=== PATIENT | female | born 1970 | race Caucasian/White ===

== ENCOUNTER 2024-12-30 12:45 | Outpatient (CLI) | payer OTHER, SELFPAY ==
--- NOTE | 2024-12-30 13:15 | ECG_ITS ---
Test Date: 2024-12-30 13:37:42 Measurements Intervals Enterprise Rate: 83 P: 37 SC: 156 QRS: -27 QRSD: 108 T: 12 QT: 384 QTc: 452 Interpretive Statements SINUS RHYTHM INCOMPLETE RIGHT BUNDLE BRANCH BLOCK CONSIDER ANTEROLATERAL INFARCT, AGE INDETERMINATE BASELINE WANDER- I, II, AVR, V2 ABNORMAL ECG No previous ECG available for comparison Electronically Signed On 12-30-2024 13:41:24 CDT by Sandeep Torres D.O.
[2024-12-30 13:40] LABS: Hematocrit 32.3 % (37.0-47.0); Hemoglobin 10.2 g/dL (12.0-15.0); Mean Corpuscular HGB Conc 31.6 g/dl (32-36); Mean Corpuscular Hemoglobin 29.1 pg (26-34); Mean Corpuscular Volume 92.3 fl (80-100); Mean Platelet Volume 9.4 fl (7.4-10.4); Platelet Count Result 151 k/mm3 (150-375); Red Cell Distribution Width 21.6 % (11.5-14.5); White Blood Count 9.2 K/mm3 (4.5-10.0)
[2024-12-30 13:50] LABS: Albumin Level 4.1 g/dL (3.5-5.1); Anion Gap 13 mmol/L (4-12); Blood Urea Nitrogen 6 mg/dL (7-17); Calcium 8.8 mg/dL (8.4-10.2); Carbon Dioxide 24 mmol/L (22-30); Chloride 106 mmol/L (98-107); Estimated Glomerular Filt Rate > 60; Glucose 131 mg/dL (65-110); Potassium 4.3 mmol/L (3.4-5.0); Sodium 143 mmol/L (137-145)
[2024-12-30 13:52] LABS: Iron 300 ug/dL (37-170)
[2024-12-30 13:57] LABS: Prealbumin 11.4 mg/dL (17.6-36.0)
--- OUTSIDE RECORDS SUMMARY | 2024-12-30 14:18 | XMS_ITS | Encounter Summary ---
Author Organization [facility] Address [address] [facility] [place] [address] Phone Care Team Providers Care Casino Manager Name Role Phone Faisal Lopez MD Primary Care Provider [phone] Norma Benito APRN, CNP Unavailable Andres Almeida MD Unavailable [phone] Amor Tirado MD Unavailable [phone] Encounter Details Date Type Department Care Team (Late st Contact Info) Description 12/09/2024 Results Follow-Up [facility] On[facility] Services [address] [place] [phone] Kathie Corey Maria Elena, PAC [address] [place] [address] FOLIC ACID (FOLATE), FERRITIN, VITAMIN B12, Additional followed-up results: 5 Social History Tobacco Use Types Packs/Day Years Used Date Smoking Tobacco: Every Day Cigarettes 0.3 20 Smokeless Tobacco: Never Comments:3 packs a week Alcohol Use Standard Drinks/Week Comments Not Currently 12 (1 standard drink = 0.6 oz pu re alcohol) [facility] Utilities Answer Date Recorded In the past 12 months has [employer] gas, oil, or water company threatened to shut off services in your home? No 11/09/2024 Social Connection and Isolat ion Panel [NHANES] Answer Date Recorded In a typical week, how many times do you talk on the phone with family, friends, or neighbors? More than three times a week 11/09/2024 How often do you get togethe r with friends or relatives? Once a week 11/09/2024 How often do you attend chur or temple services? 1 to 4 times per year 11/09/2024 Do you belong to any clubs o r organizations such as pentecostalism groups, unions, fraternal or athletic groups, or school groups? No 11/09/2024 How often do you attend meet ings of the clubs or organizations you belong to? Patient declined 11/09/2024 Are you , , di vorced, , never , or living with a partner? 11/09/2024 AUDIT-C Answer Date Recorded Q1: How often do you have a drink containing alc ohol? Monthly or less 11/09/2024 Q2: How many drinks containi ng alcohol do you have on a typical day when you are drinking? 1 or 2 11/09/2024 Q3: How often do you have si x or more drinks on one occasion? Never 11/09/2024 Overall Financial Resource Strain (CARDIA) Answe r Date Recorded How hard is it for you to pa y for the very basics like food, housing, medical care, and heating? Not hard at all 11/09/2024 PHQ-2 Answer Date Recorded Total Score - Questions 1-9 0 11/07 [facility] - Occupational Stress Questionnaire Answer Date Recorded Do you feel stress - tense, restless, nervous, or anxious, or unable to sleep at night because your mind is troubled all the time - these days? To some extent 11/09/2024 Exercise Vital Sign Answer Date Recorde d On average, how many days pe r week do you engage in moderate to strenuous exercise (like a brisk walk)? 0 days 11/09/2024 On average, how many minutes do you engage in exercise at this level? 0 min 11/09/2024 Hunger Vital Sign Answer Date Recorded Within the past 12 months, y ou worried that your food would run out before you got the money to buy more. Never true 11/10/19 25 Within the past 12 months, t he food you bought just didn't last and you didn't have money to get more. Never true 11/09/2024 PRAPARE - Transportation Answer Date Re corded In the past 12 months, has l ack of transportation kept you from medical appointments or from getting medications? No 11/2024 In the past 12 months, has l ack of transportation kept you from meetings, work, or from getting things needed for daily living? No 11/09/2024 Housing Stability Vital Sign Answer Fantasma e Recorded In the last 12 months, was t here a time when you were not able to pay the mortgage or rent on time? No 11/09/2024 In the past 12 months, how m any times have you moved where you were living? 0 11/09/2024 At any time in the past 12 m [facility], were you homeless or living in a custodial (including now)? No 11/09/2024 Education Answer Date Recorded What is the highest level of school you have completed or the highest degree you have received? Master's degree (e.g., MA, MS, Tash, MEd, [employer], NITHYA) 02/06/2022 Comments No Sex and Gender Information Value Date Recorded Sex Assigned at Not on file Legal Sex Female 9:22 PM CDT Gender Identity Not on file Sexual Orientation Not on file documented as of this encounter Plan of Treatment Upcoming Encounters Date Type Department Care Team (Late st Contact Info) Description 01/05/2025 3:30 PM CDT Office Visit [facility] [address] [place] [address] Amor Tirado MD [address] [place] [address] 01/18/2025 9:00 AM CDT Appointment [facility] Ultrasound [address] [place] [address] Kathie Corey Maria Elena, PAC [address] [place] [address] Discharge Disposition: Discharged to home or Selfcare 02/15/2025 11:30 AM CD[facility] [address] [place] [phone] Discharge Disposition: Discharged to home or Selfcare 02/22/2025 10:40 AM CDT [facility] [address] [place] [address] CoreyKathie aviles, [facility] [address] [place] [address] Discharge Disposition: Discharged to home or Selfcare documented as of this encounter Visit Diagnoses Not on filedocumented in this encounter Additional Health Concerns Assessment Noted Time PHQ-9 Depression Total Score: 0 11/19/19 3:48 PM CDT documented as of this encounter Care Teams Casino Manager Relationship Specialty Start Date End Date Faisal Lopez MD [address] [address] PCP - General Family Medicine 07/29/15 Norma Benito APRN, DETAILER [address] [place] [address] Nurse Practitioner Advanced Practice Nurse 10/15/23 Andres Almeida MD [address] [phone] Consulting Physician General Surgery 11/21/23 Amor Tirado MD [address] [place] [phone] Consulting Physician Neurology 03/31/24 documented as of this encounter
--- OUTSIDE RECORDS SUMMARY | 2024-12-30 14:18 | XMS_ITS | Encounter Summary ---
Author Organization [facility] Address [address] [place] [address] Care Team Providers Care Cargo Worker Name Role Phone Faisal Lopez MD Primary Care Provider [phone] Ilan Ortega MD Unavailable Kenia Suárez RN Unavailable [phone] Encounter Details Date Type Department Care Team (Late st Contact Info) Description 03/22/2021 Telephone [facility] [address] [facility] [address] [place] [phone] Allison Hagan MD PhD [address] [facility] [address] [place] [address] Social History Tobacco Use Types Packs/Day Years Used Date Smoking Tobacco: Every Day Cigarettes 0.5 30 Smokeless Tobacco: Never Alcohol Use Standard Drinks/Week Comments Yes 0 (1 standard drink = 0.6 oz pur e alcohol) Comments Unknown Sex and Gender Information Value Date Recorded Sex Assigned at Not on file Legal Sex Female 12:53 AM SHOVEL OPERATOR Gender Identity Not on file Sexual Orientation Not on file documented as of this encounter Plan of Treatment Upcoming Encounters Date Type Department Care Team (Latest Contact Info) Description 05/26/2025 11:30 AM CDT Hospital Encounter [facility] Center [address] [place] [address] Ilan Ortega MD [address] [place] [address] [place] [address] 05/26/2025 11:30 AM CDT - 05/26/2025 12:05 PM CDT Surgery [facility] [address] [place] [address] Ilan Ortega MD [address] [place] [address] [address] [place] [address] ESOPHAGOGASTRODUODENOSCOPY Scheduled Procedures Name Priority Associated Diagnoses Date/Ti me ESOPHAGOGASTRODUODENOSCOPY Gastric ulcer, unspecified chronicity, unspecified whether gastric ulcer hemorrhage or perforation present 05/26/2025 11:30 AM CDT documented as of this encounter Goals Goal Patient Goal Type Associated Problems Recent Progress Patient-Stated? Author CCM Chronic Pain Care Plan Chronic Care Management Worsening( 10:47 AM SHOVEL OPERATOR) Shantel Olmedo RN Note: Problem: Chronic Pain Goals: 1. Minimize further functional decline 2. Maximize quality of life 3. Control pain Strategies: - Activity/exercise program recommendation - Conservative stepwise pain medicine strategy with multi-disciplinary approach - Recommend healthy lifestyle strategies and compensatory methods as needed documented as of this encounter Visit Diagnoses Not on filedocumented in this encounter Care Teams Cargo Worker Relationship Specialty Start Date End Date Faisal Lopez MD [address] [address] PCP - General 10/13/18 Ilan Ortega MD 4 [facility] [address] [place] [address] Consulting Physician Gastroenterology 04/30/24 Kenia Suárez, RN [address] [facility] [address] [place] [address] [facility] Outpatient Cell Repairer 07/07/24 07/23/24 documented as of this encounter
--- OUTSIDE RECORDS SUMMARY | 2024-12-30 14:18 | XMS_ITS | Referral Summary ---
Author Organization [facility] Address [address] [place] [address] Care Team Providers Care Bench Precision Assembler Name Role Phone Faisal Lopez MD Primary Care Provider [phone] Ilan Ortega MD Unavailable Encounters Date Type Department Care Team Description 12/19/19 25 Orders Only [facility] Surgery [address] [place] [address] [address] [place] [phone] Caitlyn Glasgow RMA Mass of soft tissue of face (Primary Dx) 12/17/19 25 Telephone [facility] Gastroenterology at [address] [place] [phone] Brianna Feliciano 12/16/19 25 10:30 AM CDT Office Visit [facility] Surgery [address] [place] [address] [address] [place] [phone] Marion Sung NP Mass of soft tissue of face (Primary Dx); Skin lesion 12/01/19 25 Telephone [facility] Gastroenterology at [address] [place] [phone] Brianna Feliciano 11/28/19 25 Telephone [facility] Gastroenterology at [address] [place] [phone] Hallie Conway LPN 11/28/19 Telephone [facility] Gastroenterology at [address] [place] [address] Hallie Conway LPN 11/27/19 Results Follow-Up [facility] Gastroenterology at [address] [place] [address] Ilan Ortega MD 11/19/19 Orders Only [facility] Gastroenterology at [address] [place] [address] Ilan Ortega MD 11/19/19 10:40 AM CDT Anesthesia Event [address] [address] Guero Ureña MD Kory, Christopher James, MD 11/19/19 11:00 AM CDT - 11/19/19 11:40 AM CDT Surgery [address] [address] Ilan Ortega MD ESOPHAGOGASTRODUODENOSCOPY BIOPSY 11/19/19 9:56 AM CDT - 11/19/19 12:01 PM CDT Hospital Encounter [address] [address] Ilan Ortega MD Acute gastric ulcer without hemorrhage or perforation Discharge Disposition: Discharge to home or self care from Last 3 Months Allergies Active Allergy Reactions Criticality Noted Date Comments Simvastatin Swelling Medium 04/04/2018 Ankle swelling Sulfa (Sulfonamide Antibiotics) Angioedema High Sulfanilamide Angioedema High Reaction: Angioedema, Tomato Anaphylaxis High 06/26/2024 Medications omeprazole (PriLOSEC) 40 mg capsule Take 1 capsule (40 mg total) by mouth 2 (two) times a day before breakfast and dinner Please open capsule and sprinkle on food for consumption 180 capsule 1 11/19/19 Active sucralfate (CARAFATE) 1 gram tablet Take 1 tablet (1 g total) by mouth 4 (four) times a day 120 tablet 11/19/19 Active Additional Information Patient not taking.Reported on 12/15/2024 traZODone (DESYREL) 50 mg tablet Take by mouth nightly Active potassium chloride ER 20 mEq CR tablet Take 1 tablet (20 mEq total) by mouth daily 08/13/20 24 Active furosemide (LASIX) 40 mg tablet Take 1 tablet (40 mg total) by mouth daily 12/10/19 25 Active folic acid (FOLVITE) 1 mg tablet Take 1 tablet (1 mg total) by mouth daily 30 tablet 04/30/20 24 025 Discontinued calcium carbonate-arlette min D3 1,250mg (500mg elemental) - 5 mcg (200 units) per tablet Take 1 tablet by mouth 3 (three) times a day 90 tablet 07/06/20 24 025 Discontinued cyanocobalamin (Vitamin B-12) 500 mcg tablet Take 1 tablet (500 mcg total) by mouth daily 30 tablet 1 07/06/20 24 025 Discontinued thiamine (VITAMIN B1) 100 mg tablet Take 1 tablet (100 mg total) by mouth daily 30 tablet 1 07/06/20 24 025 Discontinued multivitamin with folic acid 400 mcg tablet Take 2 tablets by mouth daily 60 tablet 07/07/20 24 025 Discontinued zinc sulfate (ZINCATE) 50 mg zinc (220 mg) capsule Take 1 capsule (220 mg total) by mouth daily 30 capsule 07/07/20 24 025 Discontinued furosemide (LASIX) 80 mg tablet Take 1 tablet (80 mg total) by mouth daily 30 tablet 07/06/20 24 025 Discontinued spironolactone (ALDACTONE) 50 mg tablet Take 4 tablets (200 mg total) by mouth daily 120 tablet 07/06/20 025 Discontinued Active Problems Problem Noted Date Diagnosed Date Hepatic steatosis 07/24/2024 Hypervolemia, unspecified hypervolemia type 06/09 Melena 06/26/2024 Moderate protein-calorie malnutrition 04/29/2024 GI bleed 04/28/2024 Gastrointestinal hemorrhage, unspecified gastrointestinal hemorrhage type 04/28/2024 Hematochezia 04/28/2024 Anemia, blood loss 04/28/2024 Diarrhea 12/30/2023 Gastric ulcer 12/30/2023 Gastroesophageal reflux disease 12/30/2023 S/P laparoscopic cholecystectomy 12/19/2023 EYAD (obstructive sleep apnea) 10/29/2023 Anastomotic ulcer 10/25/2023 Abnormal finding on MRI of brain 08/28/2022 Laryngeal spasm 06/05/2022 Assessment & Plan (06/05/2022 2:51 PM CDT): Pepcid 40 mg at bedtime 64 ounces of caffeine free and soda free fluid daily LPR discussed and Handout provided Dysfunction of right eustachian tube 04/11/2022 Assessment & Plan (04/12/2022 2:41 PM CDT): Right myringotomy with T-tube placement in the Office today Follow up after Audiogram [facility] Ciprofloxacin 5 drops into the Right ear twice daily for 5 days How to Use Ear Drops Assessment & Plan (04/11/2022 10:58 AM CDT): Right myringotomy with T-tube placement in the Office Risks and complications discussed including anesthesia, bleeding, infection, hearing loss, ear tubes may fall out early, fall inwards, stay in longer than a few years, get clogged, fall out and leave a hole in the ear drum that would need to be patched, drain clear fluid. Hearing test a few weeks after ear tube placement Scan ears if no improvement in hearing testing Tinnitus of both ears 01/31/2022 Assessment & Plan (01/31/2022 2:54 PM CDT): Hearing test - [facility] Try to cancel out noise with loud fan or radio Follow up with PCP regarding elevated blood pressure A Few Causes of Ringing in Your Ears (Tinnitus) Cervical radiculopathy 02/24/2021 Chronic right shoulder pain 02/24/2021 B12 deficiency 10/17/2018 Numbness and tingling in right hand 08/14/2018 Neck pain on right side 06/04/2018 Allergic contact dermatitis due to plants, excep t food 04/04/2018 Mild intermittent asthma without complication Hyperglycemia 07/03/2016 Breast cancer screening 01/04/2016 Hyperlipidemia 09/12/2015 Hypertension 08/11/2015 Dysfunctional uterine bleeding 01/23/2010 Overview (12/15/2024): Note: Unchanged Resolved Problems Problem Noted Date Diagnosed Date Resolved Date Gallstones 12/06/2023 12/19/2023 Assessment & Plan (12/17/2023 9:35 AM CDT): ARIAN drain will be removed at bedside. Continue to change gauze as needed for drainage the next few days. Then can just replaced with Neosporin and a Band-Aid. Avoid submerging incisions for another week. Avoid heavy lifting for another 2-3 weeks. Diet as tolerates. Patient can return to work with light duty. She will call us back with any further questions or concerns. Symptomatic cholelithiasis 12/03/2023 0 12/19/2023 Social History Tobacco Use Types Packs/Day Years Used Date Smoking Tobacco: Every Day Cigarettes 0.5 30 Smokeless Tobacco: Never Tobacco Cessation:Ready to Q uit: Not Asked; Counseling Given: Not Answered Alcohol Use Standard Drinks/Week Comments Yes 0 (1 standard drink = 0.6 oz pur e alcohol) socially only PT [employer] Utilities Answer Date Recorded In the past 12 months has [employer], gas, oil, or water [employer] threatened to shut off services in your home? No 07/07/2024 Social Connection and Isolat ion Panel [NHANES] Answer Date Recorded In a typical week, how many times do you talk on the phone with family, friends, or neighbors? More than three times a week 07/07/2024 How often do you get togethe r with friends or relatives? More than three times a week 07/07/2024 How often do you attend [facility] or rastafari services? Never 07/07/2024 Do you belong to any clubs o r organizations such as anglican groups, unions, fraternal or athletic groups, or school groups? No 07/07/2024 How often do you attend meet ings of the clubs or organizations you belong to? Never 07/07/2024 Are you , , di vorced, , never , or living with a partner? 07/07/2024 AUDIT-C Answer Date Recorded Q1: How often do you have a drink containing alc ohol? Never 07/14/2024 Q2: How many drinks containi ng alcohol do you have on a typical day when you are drinking? 1 or 2 07/14/2024 Q3: How often do you have six or more drinks on one occasion? Never 07/14/2024 Overall Financial Resource Strain (CARDIA) Answe r Date Recorded How hard is it for you to pa y for the very basics like food, housing, medical care, and heating? Not hard at all 07/07/2024 Hunger Vital Sign Answer Date Recorded Within the past 12 months, y ou worried that your food would run out before you got the money to buy more. Never true 07/07/20 24 Within the past 12 months, t he food you bought just didn't last and you didn't have money to get more. Never true 07/07/2024 PRAPARE - Transportation Answer Date Re corded In the past 12 months, has l ack of transportation kept you from medical appointments or from getting medications? No 06/10 In the past 12 months, has l ack of transportation kept you from meetings, work, or from getting things needed for daily living? No 07/07/2024 Housing Stability Vital Sign Answer Fantasma e Recorded In the last 12 months, was t here a time when you were not able to pay the mortgage or rent on time? No 07/07/2024 In the past 12 months, how m any times have you moved where you were living? 0 07/07/2024 At any time in the past 12 m [facility], were you homeless or living in a prison (including now)? No 07/07/2024 Personal Safety Answer Date Recorded Have you ever been in or are you currently in a harmful physical or emotional relationship or is someone making you feel afraid or unsafe? 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 Gender Identity Not on file Sexual Orientation Not on file Last Filed Vital Signs Vital Sign Reading Time Taken Comments Blood Pressure 150/84 11/18/2024 11:43 AM CDT Pulse 73 11/18/2024 11:43 AM CDT Temperature 36.9 C (98.5 F) 11/18/2024 11:43 AM CDT Respiratory Rate 14 11/18/2024 11:43 AM CDT Oxygen Saturation 98% 11/18/2024 11:43 AM CDT Inhaled Oxygen Concentration - - Weight 99.8 kg (220 lb) 11/18/2024 10:04 AM CDT Height 172.7 cm (5' 8 ) 11/18/2024 10:04 AM CDT Body Mass Index 33.45 11/18/2024 10:04 AM CDT Plan of Treatment Upcoming Encounters Date Type Department Care Team (Latest Contact Info) Description 05/26/2025 11:30 AM CDT Hospital Encounter [address] [address] Ilan Ortega MD [address] [place] [address] 05/26/2025 11:30 AM CDT - 05/26/2025 12:05 PM CDT Surgery [address] [address] Ilan Ortega MD [address] [place] [address] ESOPHAGOGASTRODUODENOSCOPY Scheduled Procedures Name Priority Associated Diagnoses Date/Ti me ESOPHAGOGASTRODUODENOSCOPY Gastric ulcer, unspecified chronicity, unspecified whether gastric ulcer hemorrhage or perforation present 05/26/2025 11:30 AM CDT Goals Goal Patient Goal Type Associated Problems Recent Progress Patient-Stated? 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 Minimize further functional decline 2. Maximize quality of life 3. Control pain Strategies: - Activity/exercise program recommendation - Conservative stepwise pain medicine strategy with multi-disciplinary approach - Recommend healthy lifestyle strategies and compensatory methods as needed Procedures Procedure Name Priority Date/Time Associated Diagnosis Comments SURGICAL PATHOLOGY STAT 11/18/2024 12:59 PM CDT Acute gastric ulcer without hemorrhage or perforation ESOPHAGOGASTRODUODENOSCOPY BIOPSY 11/18/2024 10:35 AM CDT Acute gastric ulcer without hemorrhage or perforation EGD 11/18/2024 10:12 AM CDT HEPATITIS PANEL, ACUTE STAT 10:30 PM CDT COLONOSCOPY 04/30/2024 3:02 PM CDT from Last 3 Months or Most Recently Relevant to Health Maintenance Results * Surgical pathology (11/18/2024 12:59 PM CDT) Tissue specimen (specimen) (Gastric/Stomach biopsy) 11/18/2024 10:55 AM CDT Tissue specimen (specimen) (Gastric/Stomach biopsy) 11/18/2024 10:58 AM CDT Narrative PATHOLOGY [facility] - 11/19/2024 11:26 AM CDT EPIC results best viewed via link to PDF [facility] Department of Pathology [address] [place] [address] Note to Patients: This report may contain a detailed description of human tissue sent by a health care provider to the laboratory for pathologic evaluation. The content of this report is essential for diagnosis and may provide important critical findings. This information may be unfamiliar to patients to review without a medical professional present. It is advised that the patient review this report in the presence of a health care provider who can answer questions and explain the details. Final Report Patient Name: CHICA WILKINS Address: [address] [place] [address] Gender: F : 1970 (Age: 54) Service: Gastro Location: [facility] Hospital #: [id number] Patient Type: [facility] Taken: 11/18/2024 Received: 11/18/2024 Accessioned: 11/18/2024 Reported: 11/19/2024 Physician(s):Ilan Ortega MD Diagnosis: A. Gastrojejunostomy anastomosis, biopsy: - Small bowel mucosa with ulceration and mixed inflammation. - Negative for dysplasia and malignancy. B. Stomach, biopsy: - Antral and oxyntic type gastric mucosa showing mild chronic inactive gastritis. - Negative for intestinal metaplasia and dysplasia. - Negative for Helicobacter. Faisal Bentley M.D. Report Electronically Reviewed and Signed Out By Faisal Bentley M.D. 11/19/2024 11:26:57 Specimen(s) Received: A: Anastomosis biopsies B: Gastric biopsies Microscopic Description: A. Sections show fragments of small bowel mucosa with overlying ulceration and mixed inflammation. There is no evidence of dysplasia or malignancy. B. Sections show antral and oxyntic-type gastric mucosa showing mild chronic inactive gastritis. No significant acute inflammatory infiltrate is seen. There is no evidence of intestinal metaplasia or dysplasia. On high power examination, no Helicobacter-like organisms are seen on H&E stain. Clinical History: Acute gastric ulcer without hemorrhage or perforation. EGD. Gross Description: The specimen is submitted in two formalin containers labeled CHICA WILKINS . A. The first container is labeled anastomosis biopsies . It is 5 fragments of solomon tissue between <1 and 1 mm. All in A. B. The second container is labeled gastric biopsies . It is 3 fragments of solomon tissue between <1 and 1 mm. All in B. T.A. Conor Hubbard, [place].Lobito./Forrest Cochran M.D. REPORT IMAGES AND SCANNED DOCUMENTS, IF INCLUDED, ONLY VIEWABLE IN PDF VERSION OF REPORT The performance characteristics of some immunohistochemical stains, fluorescence in-situ hybridization tests and immunophenotyping by flow cytometry cited in this report (if any) were determined by the Surgical Pathology Department at [facility] as part of an ongoing plant quality manager program and in compliance with federally mandated regulations drawn from the Clinical Laboratory Improvement Act of 1988 (CLIA '88). Some of these tests rely on the use of analyte specific reagents and are subject to specific labeling requirements by the US Food and Drug Administration. Such diagnostic tests may only be performed in a facility that is certified by the Department of Health and Human Services as a high complexity laboratory under CLIA '88. The FDA has determined that such clearance or approval is not necessary. This test is used for clinical purposes. It should not be regarded as investigational or for research. Nevertheless, federal rules concerning the medical use of analyte specific reagents require that the following disclaimer be attached to the report: This test was developed and its performance characteristics determined by the Surgical Pathology Department [facility]. It has not been cleared or approved by the U. S. Food and Drug Administration. Note for decalcified specimens: This assay has not been validated on decalcified tissues. Results should be interpreted with caution given the possibility of false negativity on decalcified specimens us Ilan Ortega MD LAB PATHOLOGY ORDERABLES Final R esult PATHOLOGY [facility]) [address] [place], [place] [id number] * EGD (11/18/2024 10:12 AM CDT) Anatomical Region Laterality Modality Other Narrative Procedure Note Ilan Ortega MD - 11/18/2024 10:12 AM CDT [facility] Patient Name: Chica Wilkins Procedure Date: 11/18/2024 10:12 AM Date of : 1970 Admit Type: Outpatient Age: 54 Gender: Female Attending MD: Ilan Ortega M.D. Room: [facility] ENDOSCOPY ROOM 2 Note Status: Finalized Patient Profile: This is a 54 year old female PMH significant for gastric bypass complicated by anastomotic ulcer,GERD with esophagitis, cholecystectomy, hepaticsteatosis here for EGD to check for ulcer healing. PreviousEGD from 04/2024 and 06/2024 showed marginal ulceraround GJ anastomosis. She took omeprazole 20 mg BID for about 3 months after her last EGD then PCPdecreased it down to once daily. She has quit ETOH andoverall feels much better with no active GI complaints atthis time. No NSAID use. Procedure: Upper GI endoscopy Indications: Follow-up of gastric ulcer Referring MD: Faisal Lopez M.D. Providers: Ilan Ortega M.D. Impression: - Normal esophagus. - Erythematous and congested mucosa in the stomach suggestive of PHG. Biopsied. - Jozef-en-Y gastrojejunostomy with gastrojejunal anastomosis characterized by ulceration.Biopsied. - Gastric diverticulum. - Normal examined jejunum. Recommendation: - Patient has a contact number available for emergencies. The signs and symptoms of potential delayed complications were discussed with thepatient. Return to normal activities tomorrow. Written discharge instructions were provided to thepatient. - Discharge patient to home (with escort). - Resume previous diet. - No ibuprofen, naproxen, or other non-steroidal anti-inflammatory drugs. - Use Prilosec (omeprazole) 40 mg PO BID for 3months then decrease to 40 mg daily. - Use sucralfate tablets 1 gram PO QID for 1month. - Await pathology results. - Repeat upper endoscopy in 6 months to checkhealing. - Return to GI clinic as previously scheduled. Medicines: Monitored Anesthesia Care Complications: No immediate complications. Estimated Blood Loss: Estimated blood loss was minimal. Procedure: Pre-Anesthesia Assessment: - Prior to the procedure, a History and Physicalwas performed, and patient medications and allergieswere reviewed. The patient is competent. The risks and benefits of the procedure and the sedation optionsand risks were discussed with the patient. Allquestions were answered and informed consent was obtained. Patient identification and proposed procedure were verified by the physician, the energy economist and the rv repair technician in the endoscopy suite. Mental Status Examination: normal. Prophylactic Antibiotics: The patient does not require prophylactic antibiotics. Prior Anticoagulants: The patient has taken no anticoagulant or antiplatelet agents. Afterreviewing the risks and benefits, the patient was deemed in satisfactory condition to undergo the procedure.The anesthesia plan was to use monitored anesthesiacare (MAC). Immediately prior to administration of medications, the patient was re-assessed foradequacy to receive sedatives. The heart rate, respiratory rate, oxygen saturations, blood pressure, adequacyof pulmonary ventilation, and response to care were monitored throughout the procedure. The physical status of the patient was re-assessed after the procedure. The benefits, risks, and alternatives to theprocedure and sedation were discussed and informed consentwas obtained. The scope was passed under direct vision. The Endoscope GIF-H190 [id number] was introduced through the mouth, and advanced to the jejunum. The upper GI endoscopy was accomplished without difficulty. The patient tolerated the procedurewell. Findings: The examined esophagus was normal. Diffuse moderately erythematous, congested and friable mucosa wasfound in the entire examined stomach. Biopsies were taken with a coldforceps for Helicobacter pylori testing. The is overall concerning for portal hypertensive gastropathy. Evidence of a Jozef-en-Y gastrojejunostomy was found. Thegastrojejunal anastomosis was characterized by ulceration and friable mucosa. Thiswas traversed. Biopsies were taken with a cold forceps for histology. Compare to previously, the ulceration has improved. Two small diverticulum were found in the cardia. The examined jejunum was normal. Ilan Ortega M.D. 11/18/2024 11:29:37 AM Number of Addenda: 0 Note Initiated On: 11/18/2024 10:12 AM Procedure Code(s): --- Professional --- 05441, Esophagogastroduodenoscopy, flexible, transoral; with biopsy, single or multiple --- Technical --- 90110, Esophagogastroduodenoscopy, flexible, transoral; with biopsy, single or multiple Diagnosis Code(s): --- Professional --- K31.89, Other diseases of stomach and duodenum Z98.0, Intestinal bypass and anastomosis status K25.9, Gastric ulcer, unspecified as acute or chronic, without hemorrhage or perforation --- Technical --- K31.89, Other diseases of stomach and duodenum Z98.0, Intestinal bypass and anastomosis status K25.9, Gastric ulcer, unspecified as acute or chronic, without hemorrhage or perforation CPT copyright 2020 [employer]. All rights reserved. The codes documented in this report are preliminary and upon medical records library professor reviewmay be revised to meet current compliance requirements. Recognized by the [employer] for promoting quality in endoscopy us Ilan Ortega MD ENDOSCOPY PROCEDURES Final Resul t * Hepatitis panel, acute Blood (06/26/2024 10:30 PM CDT) Hep A IgM Nonreactive Nonreactive Hep B core IgM Nonreactive Nonreactive [facility] Hep C Ab Nonreactive Nonreactive [facility] Comment:Antibodies to HCV no t detected. Does NOT exclude the possibility of recent exposure to HCV. Current interpretive data was last revised on 22 HepBsAg Nonreactive Nonreactive [facility] Blood 06/26/2024 10:3 0 PM CDT 06/26/2024 10:56 PM CDT us Agus Dozier MD LAB MICROBIOLOGY - GE NERAL ORDERABLES Final Result [facility] Department [place] [address] * Colonoscopy (04/30/2024 3:02 PM CDT) Anatomical Region Laterality Modality Other Narrative Procedure Note Ilan Ortega MD - 04/30/2024 3:02 PM CDT [facility] Patient Name: Chica Wilkins Procedure Date: 04/30/2024 3:02 PM Date of : 1970 Admit Type: Inpatient Age: 54 Gender: Female Attending MD: Ilan Ortega M.D. Room: [facility] ENDOSCOPY ROOM 2 Note Status: Finalized Patient Profile: This is a 54 year old female PMH significant for gastric bypass complicated by anastomotic ulcer,GERD with esophagitis, cholecystectomy presented to the hospital with 2 day history of hematochezia,melena, hematemesis/coffee ground emesis and diffuse upper abdominal pain. Hgb low at 9.1 on admission, downfrom 11.8 four months ago and subsequently dropped to7.1. CTA C/A/P showed indeterminate soft tissue infiltration of the anterior peritoneal/omental fat within the upper abdomen suggestive ofpostoperative inflammation and blood products vs peritoneal carcinomatosis. Minimal thickening of thetransverse colon from mild colitis. Hepatic steatosis.Previous EGD from 10/2023 with diffuse esophagitis and 1 cm ulcer at anastomosis that was clipped x2.Colonoscopy 10/2023 showed 3 diminutive polyps and lipoma. EGD yesterday showed clean based marginal ulcer with inflammatory non-obstructive stricture. She was prepped for colonoscopy overnight and has notnoticed any further bleeding. Hgb now at 8.2 withoutreceiving any blood transfusions. Folate level low, B12 borderline, normal iron with elevated ferritin. Procedure: Colonoscopy Indications: Last colonoscopy within the past 6 months, Hematochezia, Melena, Iron deficiency anemia Referring MD: Faisal Lopez M.D. Providers: Ilan Ortega M.D. Impression: - Preparation of the colon was fair. - One 3 mm polyp in the transverse colon, removedwith a jumbo cold forceps. Resected and retrieved. - One 5 mm polyp in the transverse colon, removedwith a cold snare. Resected and retrieved. - External and internal hemorrhoids. - Small amounts of hematin scattered throughout the entire examined colon most prominent around cecumand sigmoid colon. No active bleeding found. - The examined portion of the ileum was normal. - Anemia is multifactorial from folate deficiency, chronic disease, marginal ulcer and likely alsosmall bowel bleeding that has already resolved. Recommendation: - Return patient to hospital [facility] for ongoingcare. - Soft diet. - No ibuprofen, naproxen, or other non-steroidal anti-inflammatory drugs. - Continue present medications. - Await pathology results. - Repeat colonoscopy in 5 years for surveillancebased on pathology results. - Replace folate - If bleeding recurs will need push enteroscopy to check for small bowel etiology since patient cannot get capsule endoscopy with her gastric bypasshistory. - Continue PPI BID for 3 months with and repeat EGD that time to check for ulcer healing and possible dilation of anastomotic stricture if needed. Medicines: Monitored Anesthesia Care Complications: No immediate complications. Estimated Blood Loss: Estimated blood loss was minimal. Procedure: Pre-Anesthesia Assessment: - Prior to the procedure, a History and Physicalwas performed, and patient medications and allergieswere reviewed. The patient is competent. The risks and benefits of the procedure and the sedation optionsand risks were discussed with the patient. Allquestions were answered and informed consent was obtained. Patient identification and proposed procedure were verified by the physician, the energy economist and the rv repair technician in the endoscopy suite. Mental Status Examination: normal. Prophylactic Antibiotics: The patient does not require prophylactic antibiotics. Prior Anticoagulants: The patient has taken no anticoagulant or antiplatelet agents. Afterreviewing the risks and benefits, the patient was deemed in satisfactory condition to undergo the procedure.The anesthesia plan was to use monitored anesthesiacare (MAC). Immediately prior to administration of medications, the patient was re-assessed foradequacy to receive sedatives. The heart rate, respiratory rate, oxygen saturations, blood pressure, adequacyof pulmonary ventilation, and response to care were monitored throughout the procedure. The physical status of the patient was re-assessed after the procedure. The benefits, risks and alternatives of theprocedure and sedation were discussed and informed consentwas obtained. All questions were answered. Please referto the signed informed consent document in the medical record. The scope was passed under direct vision.The Colonoscope [id number] was introducedthrough the anus and advanced to the 10 cm into the ileum.The bowel preparation used was GoLYTELY via split dose instruction. The colonoscopy was performed without difficulty. The patient tolerated the procedurewell. The quality of the bowel preparation was fair.Bowel prep was administered using a split dose. Findings: The perianal and digital rectal examinations were normal. A 3 mm polyp was found in the transverse colon. The polyp wassessile. The polyp was removed with a jumbo cold forceps. Resection andretrieval were complete. A 5 mm polyp was found in the transverse colon. The polyp wassessile. The polyp was removed with a cold snare. Resection and retrieval were complete. External and internal hemorrhoids were found during retroflexion. Small amounts of hematin (altered blood/rbxext-rfhtvq-cvom material)was found scattered in the entire colon most prominent in cecum, sigmoidand rectum. No signs of active bleeding in the entire examined colon. The terminal ileum examined up to 10 cm appeared normal. Ilan Ortega M.D. 04/30/2024 4:25:46 PM Number of Addenda: 0 Note Initiated On: 04/30/2024 3:02 PM Procedure Code(s): --- Professional --- 57966, Colonoscopy, flexible; with removal of tumor(s), polyp(s), or other lesion(s) by snare technique 66795, 59, Colonoscopy, flexible; with biopsy, single or multiple --- Technical --- 48222, Colonoscopy, flexible; with removal of tumor(s), polyp(s), or other lesion(s) by snare technique 18766, 59, Colonoscopy, flexible; with biopsy, single or multiple Diagnosis Code(s): --- Professional --- K64.8, Other hemorrhoids D12.3, Benign neoplasm of transverse colon (hepatic flexure orsplenic flexure) K62.5, Hemorrhage of anus and rectum K92.2, Gastrointestinal hemorrhage, unspecified K92.1, Melena (includes Hematochezia) D50.9, Iron deficiency anemia, unspecified --- Technical --- K64.8, Other hemorrhoids D12.3, Benign neoplasm of transverse colon (hepatic flexure orsplenic flexure) K62.5, Hemorrhage of anus and rectum K92.2, Gastrointestinal hemorrhage, unspecified K92.1, Melena (includes Hematochezia) D50.9, Iron deficiency anemia, unspecified CPT copyright 2020 [employer]. All rights reserved. The codes documented in this report are preliminary and upon medical records library professor reviewmay be revised to meet current compliance requirements. Recognized by the [employer] for promoting quality in endoscopy Ilan Ortega MD ENDOSCOPY PROCEDURES Final Resul t from Last 3 Months or Most Recently Relevant to Health Maintenance Insurance ANTHEM ACCESS CHOICE ANTHEM ACCESS CHOICE ANTHEM ACCESS CHOICE Advance Directives For more information, please contact: [phone] * Full Code (Latest Code Status on File) Date Activated Date Inactivated Comments 11/18/2024 10:04 AM 11/18/2024 4:01 PM * Full Code Date Activated Date Inactivated Comments 11/18/2024 10:04 AM 11/18/2024 10:04 AM * Full Code Date Activated Date Inactivated Comments 06/26/2024 8:39 PM 07/06/2024 6:35 PM * Full Code Date Activated Date Inactivated Comments 04/30/2024 2:44 PM 04/30/2024 10:59 PM * Full Code Date Activated Date Inactivated Comments 04/29/2024 11:31 AM 04/30/2024 2:44 PM Healthcare Agents on File Name Relationship Healthcare Agent Relationship Communication Eliseo Wilkins Spouse Health Care Agent Care Teams Bench Precision Assembler Relationship Specialty Start Date End Date Faisal Lopez MD [address] [facility] [address] [place] [address] PCP - General 10/13/18 Ilan Ortega MD [address] [facility] [address] [place] [address] Consulting Physician Gastroenterology 04/30/24
--- OUTSIDE RECORDS SUMMARY | 2024-12-30 14:18 | XMS_ITS | Encounter Summary ---
Author Organization [facility] Address [address] [place] [address] Phone Care Team Providers Care Plastic Dolls Mold Filler Name Role Phone Faisal Lopez MD Primary Care Provider [phone] Norma Benito APRN, CNP Unavailable Andres Almeida MD Unavailable [phone] Gm Galaviz MD Unavailable Amor Tirado MD Unavailable Reason for Visit * Reason Comments Medication Refill Encounter Details Date Type Department Care Team (Late st Contact Info) Description 11/22/2023 Refill [facility] Periop [address] [place] [address] Gm Galaviz MD [address] [place] [address] Medication Refill Social History Tobacco Use Types Packs/Day Years Used Date Smoking Tobacco: Some Days Cigarettes 0.3 20 Smokeless Tobacco: Never Comments:3 packs a week Alcohol Use Standard Drinks/Week Comments Yes 12 (1 standard drink = 0.6 oz pu re alcohol) PHQ-2 Answer Date Recorded Total Score - Questions 1-9 0 11/07 Education Answer Date Recorded What is the highest level of school you have completed or the highest degree you have received? Master's degree (e.g., MA, MS, Tash, MEd, [employer], [employer]) 02/06/2022 Comments No Sex and Gender Information Value Date Recorded Sex Assigned at Not on file Legal Sex Female 9:22 PM CDT Gender Identity Not on file Sexual Orientation Not on file documented as of this encounter Miscellaneous Notes * Telephone Encounter - Kalani Castillo RN - 11/25/2023 8:36 AM CDT Carafate and pantoprazole orders pended, routing to provider for review due to Dr. Galaviz is out of office. Please review. documented in this encounter Plan of Treatment Upcoming Encounters Date Type Department Care Team (Late st Contact Info) Description 01/05/2025 3:30 PM CDT Office Visit [facility] - Neurology [facility] [address] [place] [address] Amor Tirado MD [address] [place] [address] 01/18/2025 9:00 AM CDT [facility] [address] [place] [address] Kathie Corey [facility] [address] [place] [address] Discharge Disposition: Discharged to home or Selfcare 02/15/2025 11:30 AM CDT Lab [facility] [address] [place] [address] Discharge Disposition: Discharged to home or Selfcare 02/22/2025 10:40 AM CDT [facility] [address] [place] [address] Kathie Corey Maria Elena, PAC [address] [place] [address] Discharge Disposition: Discharged to home or Selfcare documented as of this encounter Visit Diagnoses Not on filedocumented in this encounter Additional Health Concerns Assessment Noted Time PHQ-9 Depression Total Score: 0 11/19/19 24 3:48 PM CDT documented as of this encounter Care Teams Plastic Dolls Mold Filler Relationship Specialty Start Date End Date Faisal Lopez MD [address] [facility] [address] [place] [address] PCP - General Family Medicine 07/29/15 Norma Benito APRN, DERMATOLOGY PHYSICIAN ASSISTANT [address] [place] [address] Nurse Practitioner Advanced Practice Nurse 10/15/23 Andres Almeida MD [address] [facility] [address] [place] [phone] Consulting Physician General Surgery 11/21/23 Gm Galaviz MD [address] [phone] Consulting Physician Gastroenterology 10/25/23 11/26/24 Amor Tirado MD [address] [place] [phone] Consulting Physician Neurology 03/31/24 documented as of this encounter
--- OUTSIDE RECORDS SUMMARY | 2024-12-30 14:18 | XMS_ITS | Clinical Summary ---
Author Organization [facility] Address [address] [address] Phone Care Team Providers Care Crate Icer Name Role Phone Faisal Lopez MD Primary Care Provider [phone] Norma Benito APRN, COMMUNITY SERVICES OFFICER Unavailable Andres Almeida MD Unavailable [phone] Amor Tirado MD Unavailable [phone] Allergies Active Allergy Reactions Criticality Noted Date Comments Simvastatin Swelling 04/04/2018 Ankle swelling Sulfa Antibiotics Rash,Itching,Swelling 015 Tomato Anaphylaxis High 06/26/2024 Medications ALBUTEROL IN take by inhalation. Active fluticasone-salme terol (Wixela Inhub) 250-50 MCG/ACT AEROSOL POWDER, BREATH ACTIVATEDIndicati ons:Mild intermittent asthma without complication take 1 Puff by inhalation in the morning and at bedtime. 1 Each 5 4 Active vitamin b-12 (Cyanocobalamin) 500 MCG Tablet Take 1 Tablet by mouth daily for 210 days. 30 Tablet 6 4 03/11/20 25 Active spironolactone (ALDACTONE) 25 MG Tablet Take 1 Tablet by mouth daily. 90 Tablet 3 4 Active potassium chloride SA (KLORCON M) 20 MEQ Tablet Controlled Release Take 1 Tablet by mouth daily. 90 Tablet 3 4 Active omeprazole (PriLOSEC) 20 MG CAPSULE DELAYED RELEASE Take 1 Capsule by mouth daily. 90 Capsule 1 4 08/13/20 25 Active furosemide (LASIX) 40 MG Tablet Take 1 Tablet by mouth daily. 90 Tablet 3 5 Active traZODone (DESYREL) 50 MG Tablet Take 1 Tablet by mouth nightly. 90 Tablet 5 Active Active Problems Problem Noted Date Diagnosed Date Elevated liver enzymes 12/18/2024 Abnormal plasma protein test 12/18/2024 Anemia 12/04/2024 EYAD (obstructive sleep apnea) 10/29/2023 Personal history of tobacco use 10/29/2023 Esophagitis 10/25/2023 Gastritis 10/25/2023 Anastomotic ulcer 10/25/2023 B12 deficiency 10/17/2018 Numbness and tingling in right hand 08/14/2018 Neck pain on right side 06/04/2018 Allergic contact dermatitis due to plants, excep t food 04/04/2018 Chronic right shoulder pain 04/04/2018 Mild intermittent asthma without complication Hyperglycemia 07/03/2016 Class 2 obesity due to exces s calories with body mass index (BMI) of 39.0 to 39.9 in adult 07/03/2016 Breast cancer screening 01/04/2016 Hyperlipidemia 09/12/2015 Hypertension 08/11/2015 Encounters Date Type Department Care Team Description 12/28/2024 11:00 AM CDT Clinical Support [facility] Oncology Services [address] [place] [address] Kathie Corey, PAC Iron deficiency anemia secondary to inadequate dietary iron intake (Primary Dx) Discharge Disposition: Discharged to home or Selfcare 12/28/2024 Travel 12/24/2024 10:30 AM CDT Clinical Support [facility] [address] [place] [address] Kathie Corey, PAC Iron deficiency anemia secondary to inadequate dietary iron intake (Primary Dx) Discharge Disposition: Discharged to home or Selfcare 12/24/2024 Travel 12/22/2024 11:00 AM CDT Clinical Support [facility] On[facility] [address] [place] [address] CoreyGarrettKathie Maria Elena, PAC Iron deficiency anemia secondary to inadequate dietary iron intake (Primary Dx) Discharge Disposition: Discharged to home or Selfcare 12/22/2024 Travel 12/18/2024 2:20 PM CDT [facility] [address] [place] [address] CoreyGarrettKathie Maria Elena, PAC Iron deficiency anemia secondary to inadequate dietary iron intake (Primary Dx); Elevated liver enzymes; Abnormal plasma protein test Discharge Disposition: Discharged to home or Selfcare 12/18/2024 Travel 12/17/2024 Travel 12/09/2024 Results Follow-Up [facility]cology [facility] [address] [place] [address] CoreyGarrettKathie Maria Elena, PAC FOLIC ACID (FOLATE), FERRITIN, VITAMIN B12, Additional followed-up results: 5 12/08/2024 Telephone [facility] [address] [place] [address] Faisal Lopez MD 12/07/2024 Telephone [facility] [address] [place] [address] Faisal Lopez MD 12/04/2024 3:00 PM CDT Lab [facility] [address] [place] [address] CoreyGarrettKathie Maria Elena, PAC Anemia, unspecified type Discharge Disposition: Discharged to home or Selfcare 12/04/2024 2:40 PM CDT Initial Consult [facility] [address] [place] [address] Mariana Coreye Maria Elena, PAC Anemia, unspecified type Discharge Disposition: Discharged to home or Selfcare 12/04/2024 Travel 12/02/2024 Travel 11/26/2024 12:45 PM CDT Office Visit [facility] [address] [place] [address] Faisal Lopez MD Anemia, unspecified type (Primary Dx); Primary hypertension Discharge Disposition: Discharged to home or Selfcare 11/26/2024 Travel 11/25/2024 Travel 11/11/2024 4:00 PM INTERNATIONAL SALES MANAGER Office Visit [facility] [address] [place] [address] Faisal Lopez MD Primary insomnia (Primary Dx); Facial lesion; Anemia, unspecified type; Elevated liver enzymes; Elevated LFTs Discharge Disposition: Discharged to home or Selfcare 11/09/2024 Travel 11/04/2024 Results Follow-Up [facility] [address] [place] [address] Faisal Lopez MD WINSTON SCREENING BILATERAL DIGITAL W CAD W ISABELLA 11/02/2024 3:58 PM INTERNATIONAL SALES MANAGER - 11/02/2024 11:59 PM INTERNATIONAL SALES MANAGER [facility] [address] [place] [address] Faisal Lopez MD Discharge Disposition: Discharged to home or Selfcare 11/02/2024 Travel 10/14/[address] [facility] [address] [place] [address] Faisal Lopez MD Visit for screening mammogram (Primary Dx) from Last 3 Months Immunizations Immunization Administration Dates Next Due Covid-19, Mrna, Lnp-s, Pf, 3 0 Mcg/0.3 Ml Dose (RetiDiag) 01/04/2021,12/06/2020 Influenza Vaccine 07/14/2018 Influenza Vaccine, Quadrivalent, PF 07/11,07/11/2022,05/26/2021,2019,10/18/2017,07/03/2016 Influenza,Split Virus,Trivalent,Injectable,PF 06/08/2024 PUR FLU 3+ YRS PRES FREE QUAD IM 07/03/2016 TDAP Vaccine 11/07/2014 Family History * Patient is adopted Relation Name Status Comments Father Other Mother Other Social History Tobacco Use Types Packs/Day Years Used Date Smoking Tobacco: Every Day Cigarettes 0.3 20 Smokeless Tobacco: Never Tobacco Cessation:Ready to Q uit: Not Asked; Counseling Given: Not Answered Comments:3 packs a week Alcohol Use Standard Drinks/Week Comments Not Currently 12 (1 standard drink = 0.6 oz pu re alcohol) [facility] Utilities Answer Date Recorded In the past 12 months has [employer], oil, or water [employer] threatened to shut off services in your [...] week 11/09/2024 How often do you attend [facility] or [facility] services? 1 to 4 times per year 11/09/2024 Do you belong to any clubs o r organizations such as [employer] groups, unions, fraternal or athletic groups, or [...] Total Score - Questions 1-9 0 11/07 [facility] of Occupat ional Health - Occupational Stress [...] any time in the past 12 m [facility], were you homeless or living in a prison (including now)? No 11/09/2024 Education Answer Date Recorded What is the highest level of school you have completed or the highest degree you have received? Master's degree (e.g., MA, MS, Tash, MEd, SEWING MACHINE TESTER, NITHYA) 02/06/2022 Comments No Sex and Gender Information Value Date Recorded Sex Assigned at Not on file Legal Sex Female 9:22 PM CDT Gender Identity Not on file Sexual Orientation Not on file Last Filed Vital Signs Vital Sign Reading Time Taken Comments Blood Pressure 134/74 12/28/2024 11:14 AM CDT Pulse 81 12/28/2024 11:14 AM CDT Temperature 36.8 C (98.2 F) 12/28/2024 11:14 AM CDT Respiratory Rate 18 12/28/2024 11:14 AM CDT Oxygen Saturation 98% 12/28/2024 11:14 AM CDT Inhaled Oxygen Concentration - - Weight 103.9 kg (229 lb) 12/18/2024 2:20 PM CDT Height 172.7 cm (5' 8 ) 12/04/2024 2:42 PM CDT Body Mass Index 34.82 12/04/2024 2:42 PM CDT Plan of Treatment Upcoming Encounters Date Type Department Care Team (Late st Contact Info) Description 01/05/2025 3:30 PM CDT Office Visit [facility] - [facility]rology - [facility] [address] [place] [address] Amor Tirado MD [address] [place] [address] 01/18/2025 9:00 AM CDT [facility] [address] [place] [address] Kathie Corey Maria Elena, PAC [address] [place] [address] Discharge Disposition: Discharged to home or Selfcare 02/15/2025 11:30 AM CDT [facility] [address] [place] [address] Discharge Disposition: Discharged to home or Selfcare 02/22/2025 10:40 AM CDT Office Visit [facility]cology Services [address] [place] [address] Kathie Corey Maria Elena, PAC [address] [place] [address] Discharge Disposition: Discharged to home or Selfcare Health Maintenance Due Date Last Done Comments Hepatitis C Virus (HCV) Screening 1970 Hepatitis B Immunization (1 of 3 - 19+ 3-dose series) 01/01/1987 Pneumococcal Immunization (50+ years) (1 of 2 - PCV) 01/01/1987 Cologuard 01/01/2018 Immunochemical Fecal Occult Blood 01/01/2018 Zoster Immunization (1 of 2) 01/01/2018 SARS-COV-2 Immunization (3 - season) 2024 01/04/2021, 12/06/2020 Td Immunization Every 10 Years (Adults With 1 Tdap) 11/07/2024 11/07/2014 Mammogram 11/02/2025 11/02/2024, 06/09, 12/17/2020, Additional history exists Colonoscopy 04/30/2029 04/30/2024, 04/10, 10/25/2023, Additional history exists Colorectal Cancer Screening 04/30/2029 Respiratory Syncytial Virus (RSV) Immunization (Adult) (1 - 1-dose 75+ series) 01/01/2043 04/30/2024, 04/10, 10/25/2023, Additional history exists Influenza Immunization Completed , 08/05/2023, 07/11/2022, Additional history exists Meningococcal Immunization (ACWY) Aged Out No longer eligible based on patient's age to complete this topic Rotavirus Immunization Aged Out No lo nger eligible based on patient's age to complete this topic Medical Devices Implanted Type Area Discovery Guide Device Identifier Shelf Expiration Date Model / Serial / Lot Clip Hemostatic Resolution 360 Ultra 17mm Opening 235cm Rotatable Control Knob Cath - [id number] Implanted:Qty: 2 on 10/25/2023 by Gm Galaviz MD at [facility] IMPLANT Joonto 10/16/2025 [id number] / [id number] / [id number] Procedures Procedure Name Priority Date/Time Associated Diagnosis Comments CBC WITH AUTO DIFFERENTIAL Routine 12/04/2024 3:17 PM CDT Anemia, unspecified type IRON,TRANSFERN,CALC.TIB C,%SAT Routine 12/04/2024 3:17 PM CDT Anemia, unspecified type IMMUNOFIXATION W/ ELECTROPHORESIS SERUM Routine 12/04/2024 3:17 PM CDT Anemia, unspecified type FREE KAPPA & LAMBDA LIGHT CHAINS SERUM Routine 12/04/2024 3:17 PM CDT Anemia, unspecified type LACTATE DEHYDROGENASE (LD) Routine 12/04/2024 3:17 PM CDT Anemia, unspecified type VITAMIN B12 Routine 12/04/2024 3:17 PM CDT Anemia, unspecified type COMPLETE BLOOD COUNT (CBC) WITH DIFF Routine 12/04/2024 3:17 PM CDT Anemia, unspecified type FERRITIN Routine 12/04/2024 3:17 PM CDT Anemia, unspecified type FOLIC ACID (FOLATE) Routine 12/04/2024 3 :17 PM CDT Anemia, unspecified type BILIRUBIN DIRECT (CONJUGATED) Routine 12/04/2024 10:08 AM CDT Anemia, unspecified type Primary hypertension RETICULOCYTE COUNT (RETIC) Routine 12/04/2024 10:08 AM CDT Anemia, unspecified type Primary hypertension CMP (COMPREHENSIVE METABOLIC PANEL) Today 12/04/2024 10:08 AM CDT Anemia, unspecified type Primary hypertension CBC WITH AUTO DIFFERENTIAL Today 11/25/2024 3:37 PM CDT Anemia, unspecified type COMPLETE BLOOD COUNT (CBC) WITH DIFF Today 11/25/2024 3:37 PM CDT Anemia, unspecified type EGD 11/18/2024 12:00 AM CDT EGD 11/18/2024 12:00 AM CDT WINSTON SCREENING BILATERAL DIGITAL W CAD W ISABELLA Routine 11/02/2024 4:30 PM INTERNATIONAL SALES MANAGER Visit for screening mammogram [facility] COLONOSCOPY 04/30/2024 12:00 AM CDT from Last 3 Months or Most Recently Relevant to Health Maintenance Results * (ABNORMAL) IRON,TRANSFERN,CALC.TIBC,%SAT (12/04/2024 3:17 PM CDT) Pathologist [facility] IRON 33 25 - 156 mcg/dL 12/04/2024 4:07 PM CDT [facility] TRANSFERRIN 295 180 - 382 mg/dL 12/04/2024 4:07 PM CDT [facility] TIBC, CALCULATED 369 265 - 497 mcg/dL 12/04/2024 4:07 PM CDT [facility] % SATURATION * 9(L) 15 - 62 % 12/04/2024 4:07 PM CDT [facility] Blood Venipuncture / Unknown 12/04/2024 3:17 PM CDT 12/04/2024 3:17 PM CDT [facility] PAC CHEMISTRY ORDERABLES Nicole l Result [facility] [address] [place] [address] * (ABNORMAL) CBC WITH AUTO DIFFERENTIAL (12/04/2024 3:17 PM CDT) Only the most recent of2 resultswithin the time period is included. Pathologist [facility] WBC 7.15 4.00 - 12.00 10(3)/mcL 12/04/2024 3:40 PM CDT [facility] RBC 3.20(L) 3.80 - 5.30 10(6)/mcL 12/04/2024 3:40 PM CDT [facility] HEMOGLOBIN (HGB) 9.2(L) 12.0 - 15.8 g/dL 12/04/2024 3:40 PM CDT [facility] HEMATOCRIT (HCT) 28.9(L) 36.0 - 47.0 % 12/04/2024 3:40 PM CDT [facility] MCV 90.3 82.0 - 96.0 fL 12/04/2024 3:40 PM CDT [facility] MCH 28.8 26.0 - 34.0 pg 12/04/2024 3:40 PM CDT [facility] MCHC 31.8 31.0 - 36.0 g/dL 12/04/2024 3:40 PM CDT [facility] PLATELET COUNT 182 140 - 440 10(3)/mcL 12/04/2024 3:40 PM CDT [facility] RDW 18.7(H) 11.8 - 15.5 % 12/04/2024 3:40 PM CDT [facility] MPV 9.0(L) 9.7 - 12.4 fL 12/04/2024 3:40 PM CDT [facility] NEUTROPHILS 47.7 47.0 - 73.0 % 12/04/2024 3:40 PM CDT [facility] LYMPHOCYTES 32.7 18.0 - 42.0 % 12/04/2024 3:40 PM CDT [facility] MONOCYTES 14.7(H) 4.0 - 12.0 % 12/04/2024 3:40 PM CDT [facility] EOSINOPHILS 3.4 0.0 - 5.0 % 12/04/2024 3:40 PM CDT [facility] BASOPHILS 1.5(H) 0.0 - 1.0 % 12/04/2024 3:40 PM CDT [facility] ABSOLUTE NEUTROPHILS 3.41 1.60 - 7.70 10(3)/mcL 12/04/2024 3:40 PM CDT [facility] ABSOLUTE LYMPHOCYTES 2.34 1.30 - 3.20 10(3)/mcL 12/04/2024 3:40 PM CDT [facility] ABSOLUTE MONOCYTES 1.05(H) 0.20 - 1.00 10(3)/mcL 12/04/2024 3:40 PM CDT [facility] ABSOLUTE EOSINOPHIL 0.24 0.00 - 0.40 10(3)/mcL 12/04/2024 3:40 PM CDT [facility] ABSOLUTE BASOPHILS 0.11(H) 0.00 - 0.10 10(3)/mcL 12/04/2024 3:40 PM CDT [facility] Blood Venipuncture / Unknown 12/04/2024 3:17 PM CDT 12/04/2024 3:[address] [facility] PAC HEMATOLOGY ORDERABLES Fin al Result [facility] [address] [place] [address] * (ABNORMAL) FREE KAPPA & LAMBDA LIGHT CHAINS SERUM (12/04/2024 3:17 PM CDT) Free Geraldine Lt Chn 75.56(H) 3.30 - 19.40 mg/L 12/07/2024 10:35 AM CDT [facility] Free Lambda Lt Chn 37.11(H) 5.71 - 26.30 mg/L 12/07/2024 10:35 AM CDT [facility] free tanya mckoy ratio 2.04(H) 0.26 - 1.65 12/07/2024 10:35 AM CDT [facility] Blood Venipuncture / Unknown 12/04/2024 3:17 PM CDT 12/04/2024 3:[address] [facility] PAC CHEMISTRY ORDERABLES Nicole l Result [facility] [address] [place] [address], * VITAMIN B12 (12/04/2024 3:17 PM CDT) VITAMIN B12 701 213 - 816 pg/mL 12/04/2024 7:06 PM CDT [facility] Blood Venipuncture / Unknown 12/04/2024 3:17 PM CDT 12/04/2024 3:[address] [facility] PAC CHEMISTRY ORDERABLES Nicole l Result [facility] [address] [place] [address] * (ABNORMAL) LACTATE DEHYDROGENASE (LD) (12/04/2024 3:17 PM CDT) Pathologist [facility] LDH 324(H) 125 - 220 U/L 12/04/2024 4:07 PM CDT [facility] Blood Venipuncture / Unknown 12/04/2024 3:17 PM CDT 12/04/2024 3:[address] [facility] PAC CHEMISTRY ORDERABLES Nicole l Result Performing Organization Address [facility] Co de Phone Number [facility] [address] [place] [address] * (ABNORMAL) IMMUNOFIXATION W/ ELECTROPHORESIS SERUM (12/04/2024 3:17 PM CDT) [facility] TOTAL PROTEIN 7.9 6.0 - 8.0 g/dL 12/07/2024 2:58 PM CDT [facility] % ALBUMIN 41.5(L) 55.8 - 66.7 % 12/07/2024 2:58 PM CDT [facility] ALBUMIN SERUM 3.3 2.5 - 5.4 g/dL 12/07/2024 2:58 PM CDT [facility] % ALPHA 1 GLOBULIN 3.6 2.9 - 4.9 % 12/07/2024 2:58 PM CDT [facility] ALPHA 1 0.3 0.2 - 0.4 g/dL 12/07/2024 2:58 PM CDT [facility] % ALPHA 2 GLOBULIN 7.0(L) 7.1 - 11.8 % 12/07/2024 2:58 PM CDT [facility] ALPHA 2 0.6 0.5 - 1.0 g/dL 12/07/2024 2:58 PM CDT [facility] % BETA 16.0(H) 8.4 - 13.1 % 12/07/2024 2:58 PM CDT [facility] BETA-GLOBULIN 1.3(H) 0.5 - 1.1 g/dL 12/07/2024 2:58 PM CDT [facility] % GAMMA GLOBULIN 31.9(H) 11.1 - 18.8 % 12/07/2024 2:58 PM CDT [facility] GAMMA 2.5(H) 0.7 - 1.5 g/dL 12/07/2024 2:58 PM CDT [facility] IMMUNOGLOBULIN G 2,103(H) 552 - 1,631 mg/dL 12/07/2024 2:58 PM CDT [facility] IMMUNOGLOBULIN A 798(H) 65 - 421 mg/dL 12/07/2024 2:58 PM CDT [facility] IMMUNOGLOBULIN M 293 33 - 293 mg/dL 12/07/2024 2:58 PM CDT [facility] INTERPRETATION SERUM No abnormal protein band is detected by serum protein electrophoresis. Serum immunofixation electrophoresis is negative for monoclonal immunoglobulins. Reviewed by Luis Kumar, Ph.D. 12/07/2024 2:58 PM CDT [facility] A/G RATIO, SERUM 0.7 12/08/19 25 2:58 PM CDT [facility] Blood Venipuncture / Unknown 12/04/2024 3:17 PM CDT 12/04/2024 3:17 PM CDT Narrative [facility] - 12/07/2024 2:58 PM CDT Reviewed by Grayson Stein M.D. us Kathie Corey PAC CHEMISTRY ORDERABLES Nicole l Result [facility] [address] [place] [address], [place] * FOLIC ACID (FOLATE) (12/04/2024 3:17 PM CDT) FOLATE 9.2 7.0 - 31.4 ng/mL 12/04/2024 7:06 PM CDT [facility] IS THE PATIENT REQUIRED TO BE FASTING? No 12/04/2024 7:06 PM CDT [facility] Blood Venipuncture / Unknown 12/04/2024 3:17 PM CDT 12/04/2024 3:17 PM CDT Result [facility] PAC CHEMISTRY ORDERABLES Nicole l Result Performing Organization Address [facility]/ZIP Co de Phone Number [facility] [address] [place] [address] * FERRITIN (12/04/2024 3:17 PM CDT) FERRITIN 25 5 - 204 ng/mL 12/04/2024 4:20 PM CDT [facility] Blood Venipuncture / Unknown 12/04/2024 3:17 PM CDT 12/04/2024 3:[address] [facility] PAC CHEMISTRY ORDERABLES Nicole l Result Performing Organization Address [facility]/ZIP Co de Phone Number [facility] [address] [place] [address] * RETICULOCYTE COUNT (RETIC) (12/04/2024 10:08 AM CDT) RETICULOCYTES 1.3 0.5 - 2.0 % 12/04/2024 10:27 AM CDT [facility] Blood Venipuncture / Unknown 12/04/2024 10:08 AM CDT 12/04/2024 10:24 AM CDT Result [facility] Faisal Lopez MD HEMATOLOGY ORDERABLES Final R esult [facility] [address] [facility] [place] [address] * (ABNORMAL) CMP (COMPREHENSIVE METABOLIC PANEL) (12/04/2024 10:08 AM CDT) SODIUM 143 136 - 145 mmol/L 12/04/2024 10:48 AM CDT [facility] POTASSIUM 4.3 3.5 - 5.1 mmol/L 12/04/2024 10:48 AM CDT [facility] CHLORIDE 109(H) 98 - 107 mmol/L 12/04/2024 10:48 AM CDT [facility] CO2, VENOUS 26 22 - 30 mmol/L 12/04/2024 10:48 AM CDT [facility] ANION GAP 12.3 <18.0 mmol/L 12/04/2024 10:48 AM CDT [facility] GLUCOSE 116(H) 70 - 99 mg/dL 12/04/2024 10:48 AM CDT [facility] BUN 8(L) 10 - 20 mg/dL 12/04/2024 10:48 AM CDT [facility] CREATININE, BLOOD 0.70 0.60 - 1.00 mg/dL 12/04/2024 10:48 AM CDT [facility] BUN/CREATININE RATIO 11(L) 12 - 20 ratio 12/04/2024 10:48 AM CDT [facility] TOTAL PROTEIN 8.4(H) 6.0 - 8.0 g/dL 12/04/2024 10:48 AM CDT [facility] ALBUMIN 3.5 3.5 - 5.0 g/dL 12/04/2024 10:48 AM CDT [facility] A/G RATIO 0.7(L) 1.0 - 2.2 12/04/2024 10:48 AM CDT [facility] CALCIUM 8.7 8.7 - 10.5 mg/dL 12/04/2024 10:48 AM CDT [facility] T BILI 1.3(H) 0.2 - 1.2 mg/dL 12/04/2024 10:48 AM CDT [facility] SGOT (AST) 102(H) <43 U/L 12/04/2024 10:48 AM CDT [facility] SGPT (ALT) 26 <56 U/L 12/04/2024 10:48 AM CDT [facility] ALKALINE PHOSPHATASE 172(H) 40 - 150 U/L 12/04/2024 10:48 AM CDT [facility] IS THE PATIENT REQUIRED TO BE FASTING? No 12/04/2024 10:48 AM CDT [facility] GFR, ESTIMATED >60 >=60 12/04/2024 10:48 AM CDT [facility] Comment: Creatinine Clearance is the preferred criteria for selecting drug dose adjustments in renally impaired patients. The GFR is provided as additional pertinent clinical information. GFR is reported in mL/min/1.73 sq m. Calculation based on the Chronic Kidney Disease Epidemiology Collaboration (CKD- EPI) equation refit without adjustment for race. GFR, EST. >60 >=60 025 10:48 AM CDT [facility] GFR, EST. NONAFRICAN >60 >=60 12/04/2024 10:48 AM CDT [facility] Blood Venipuncture / Unknown 12/04/2024 10:08 AM CDT 12/04/2024 10:24 AM CDT us Faisal Lopez MD CHEMISTRY ORDERABLES Final Re sult [facility] [address] [place] [address] * (ABNORMAL) BILIRUBIN DIRECT (CONJUGATED) (12/04/2024 10:08 AM CDT) BILIRUBIN,DIRE CT 0.6(H) 0.0 - 0.5 mg/dL 12/04/2024 10:48 AM CDT [facility] Blood Venipuncture / Unknown 12/04/2024 10:08 AM CDT 12/04/2024 10:24 AM CDT Result Mae Lopez MD CHEMISTRY ORDERABLES Final Re sult [facility] [address] [place] [address] * EGD (11/18/2024 12:00 AM CDT) Anatomical Region Laterality Modality Endoscopy 11/18/2024 Result Mae Lopez MD GI PROCEDURE ORDERABLES Final Result * EGD (11/18/2024 12:00 AM CDT) Anatomical Region Laterality Modality Endoscopy 11/18/2024 Result Mae Lopez MD GI PROCEDURE ORDERABLES Final Result * [employer]ON SCREENING BILATERAL DIGITAL W CAD W ISABELLA (11/02/2024 4:30 PM INTERNATIONAL SALES MANAGER) Anatomical Region Laterality Modality breast Bilateral Mammography 11/02/2024 4:26 PM INTERNATIONAL SALES MANAGER Narrative 11/04/2024 9:44 AM INTERNATIONAL SALES MANAGER - [employer]ON SCREENING BILATERAL DIGITAL W CAD W ISABELLA BILATERAL DIGITAL SCREENING MAMMOGRAM 3D/2D WITH CAD WITH MEDIOLATERAL OBLIQUE CRANIOCAUDAL: 11/02/2024 The study was acquired using digital technology and interpreted from soft copy. Current study was also evaluated with ICAD version 7.2. 2D digital mammographic views, as well as 3D digital tomosynthesis were performed in the CC and MLO projections. CLINICAL: Routine screening. Patient has no complaints. She reports a 30 pound weight loss. No personal history of cancer. No family history of breast cancer. COMPARISONS: Comparison is made to exams dated: 06/25/2023, [facility]17/2020, [facility] BRE[facility] TISSUE:There are scattered areas of fibroglandular density. FINDINGS: There are benign calcifications in both breasts. No significant masses, calcifications, or other findings are seen in either breast. There has been no significant interval change. IMPRESSION: BENIGN There is no mammographic evidence of malignancy. A 1 year screening mammogram is recommended. A letter will be sent to the patient with these results. The patient will be entered into a reminder system with a target due date of 1 year for her next screening exam. Electronically signed by: Austin [email or web address]:11/03/2024 16:43:10 Assistant Account Manager(s): Theresa Newell RT(R)(M), [facility] letter sent: Normal Exam Reading location: [facility] Mammogram BI-RADS: Category 2: Benign Procedure Note Austin Herrera MD - 11/04/2024 - [facility] SCREENING BILATERAL DIGITAL W CAD W ISABELLA BILATERAL DIGITAL SCREENING MAMMOGRAM 3D/2D WITH CAD WITH MEDIOLATERAL OBLIQUE CRANIOCAUDAL: 11/02/2024 The study was acquired using digital technology and interpreted from soft copy. Current study was also evaluated with ICAD version 7.2. 2D digital mammographic views, as well as 3D digital tomosynthesis were performed in the CC and MLO projections. CLINICAL: Routine screening. Patient has no complaints. She reports a 30 pound weight loss. No personal history of cancer. No family history of breast cancer. COMPARISONS: Comparison is made to exams dated: 06/25/2023, 12/17/2020, and 10/04/2018 [facility]. BREAST TISSUE:There are scattered areas of fibroglandular density. FINDINGS: There are benign calcifications in both breasts. No significant masses, calcifications, or other findings are seen in either breast. There has been no significant interval change. IMPRESSION: BENIGN There is no mammographic evidence of malignancy. A 1 year screening mammogram is recommended. A letter will be sent to the patient with these results. The patient will be entered into a reminder system with a target due date of 1 year for her next screening exam. Electronically signed by: Austin sotelo/penrad:11/03/2024 16:43:10 Assistant Account Manager(s): Theresa Newell RT(R)(M), [facility] letter sent: Normal Exam Reading location: [facility] Mammogram BI-RADS: Category 2: Benign Faisal Lopez MD IMG MAMMO ORDERABLES Final Re sult * HM COLONOSCOPY (04/30/2024 12:00 AM CDT) 04/30/2024 Faisal Lopez MD PROCEDURE/MINOR SURGICAL ORDE RABLES Final Result SCAN from Last 3 Months or Most Recently Relevant to Health Maintenance Insurance [facility] Care Teams Crate Icer Relationship Specialty Start Date End Date Faisal Lopez MD #[address] [address] PCP - General Family Medicine 07/29/15 Norma Benito APRN, COMMUNITY SERVICES OFFICER [address] [place] [address] Nurse Practitioner Advanced Practice Nurse 10/15/23 Andres Almeida MD #[address] [address] Consulting Physician General Surgery 11/21/23 Amor Tirado MD [address] [facility] [place] [address] Consulting Physician Neurology 03/31/24
--- OUTSIDE RECORDS SUMMARY | 2024-12-30 14:18 | XMS_ITS | Encounter Summary ---
Author Organization [facility] Address [address] [place] [address] Care Team Providers Care Grain Picker Name Role Phone Faisal Lopez MD Primary Care Provider [phone] Ilan Ortega MD Unavailable Kenia Suárez RN Unavailable [phone] Reason for Visit * Reason Onset Date Comments Pre Arrival 11/06/2021 Encounter Details Date Type Department Care Team (Late st Contact Info) Description 11/06/2021 Telephone [facility] [place] [facility] Advanced Medicine [address] [place], [place] [id number] Allison Hagan MD PhD [address] [facility] [address] [place], [place] [id number] Pre Arrival Social History Tobacco Use Types Packs/Day Years Used Date Smoking Tobacco: Every Day Cigarettes 0.5 30 Smokeless Tobacco: Never Alcohol Use Standard Drinks/Week Comments Yes 0 (1 standard drink = 0.6 oz pur e alcohol) AUDIT-C Answer Date Recorded Q1: How often do you have a drink containing alc ohol? Monthly or less 08/30/2021 Q2: How many drinks containi ng alcohol do you have on a typical day when you are drinking? 1 or 2 08/30/2021 Q3: How often do you have si x or more drinks on one occasion? 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 [address] [place] [address] 05/26/2025 11:30 AM CDT - 05/26/2025 12:05 PM CDT Surgery [address] [address]Ilan Anton MD 4 [facility] [address] [place] [address] ESOPHAGOGASTRODUODENOSCOPY Scheduled Procedures Name Priority Associated Diagnoses Date/Ti me ESOPHAGOGASTRODUODENOSCOPY Gastric ulcer, unspecified chronicity, unspecified whether gastric ulcer hemorrhage or perforation present 05/26/2025 11:30 AM CDT documented as of this encounter Goals Goal Patient Goal Type Associated Problems Recent Progress Patient-Stated? Author CCM Chronic Pain Care Plan Chronic Care Management Worsening( 10:47 AM GRADE AND CENTER MARKER) Shantel Olmedo, RN Note: Problem: Chronic Pain Goals: 1. Minimize further functional decline 2. Maximize quality of life 3. Control pain Strategies: - Activity/exercise program recommendation - Conservative stepwise pain medicine strategy with multi-disciplinary approach - Recommend healthy lifestyle strategies and compensatory methods as needed documented as of this encounter Visit Diagnoses Not on filedocumented in this encounter Care Teams Grain Picker Relationship Specialty Start Date End Date Faisal Lopez MD [address] [facility] [place] [address] PCP - General 10/13/18 Ilan Ortega MD 4 [facility] [address] [place] [address] Consulting Physician Gastroenterology 04/30/24 Kenia Suárez, RN [address] [address] [facility] Boil Off Machine Operator Cloth 07/07/24 07/23/24 documented as of this encounter
--- OUTSIDE RECORDS SUMMARY | 2024-12-30 14:18 | XMS_ITS | Encounter Summary ---
Author Organization [facility] Address [address] [place] [address] Phone Care Team Providers Care Motorized Squad Sergeant Name Role Phone Faisal Lopez MD Primary Care Provider Norma Benito APRN, CNP Unavailable Andres Almeida MD Unavailable [phone] Gm Galaviz MD Unavailable Amor Tirado MD Unavailable [phone] Encounter Details Date Type Department Care Team (Late st Contact Info) Description 11/04/2024 Results Follow-Up [facility] - Family Medicine [facility] [address] [place] [id number] Faisal Lopez MD #[address] [address] [place] SCREENING BILATERAL DIGITAL W CAD W ISABELLA Social History Tobacco Use Types Packs/Day Years Used Date Smoking Tobacco: Every Day Cigarettes 0.3 20 Smokeless Tobacco: Never Comments:3 packs a week Alcohol Use Standard Drinks/Week Comments Not Currently 12 (1 standard drink = 0.6 oz pu re alcohol) [facility] Utilities Answer Date Recorded In the past 12 months has [employer], gas, oil, or water company threatened to shut off services in your home? No 08/13/2024 Social Connection and Isolat ion Panel [NHANES] Answer Date Recorded In a typical week, how many times do you talk on the phone with family, friends, or neighbors? More than three times a week 08/13/2024 How often do you get togethe r with friends or relatives? Once a week 08/13/2024 How often do you attend chur ch or confucianism services? Never 08/13/2024 Do you belong to any clubs o r organizations such as congregation groups, unions, fraternal or athletic groups, or school groups? No 08/13/2024 How often do you attend meet ings of the clubs or organizations you belong to? Never 08/13/2024 Are you , , di vorced, , never , or living with a partner? 08/13/2024 AUDIT-C Answer Date Recorded Q1: How often do you have a drink containing alcohol? Never 08/13/2024 Q2: How many drinks containi ng alcohol do you have on a typical day when you are drinking? Patient does not drink Q3: How often do you have si x or more drinks on one occasion? Never 08/13/2024 Overall Financial Resource Strain (CARDIA) Answe r Date Recorded How hard is it for you to pa y for the very basics like food, housing, medical care, and heating? Not hard at all 08/13/2024 PHQ-2 Answer Date Recorded Total Score - Questions 1-9 0 11/07 [facility]ational Stress Questionnaire Answer Date Recorded Do you feel stress - tense, restless, nervous, or anxious, or unable to sleep at night because your mind is troubled all the time - these days? To some extent 08/13/2024 Exercise Vital Sign Answer Date Recorde d On average, how many days pe r week do you engage in moderate to strenuous exercise (like a brisk walk)? 2 days 08/13/2024 On average, how many minutes do you engage in exercise at this level? 30 min 08/13/2024 Hunger Vital Sign Answer Date Recorded Within the past 12 months, y ou worried that your food would run out before you got the money to buy more. Never true 08/13/20 24 Within the past 12 months, t he food you bought just didn't last and you didn't have money to get more. Never true 08/13/2024 PRAPARE - Transportation Answer Date Re corded In the past 12 months, has l ack of transportation kept you from medical appointments or from getting medications? No 01/2024 In the past 12 months, has l ack of transportation kept you from meetings, work, or from getting things needed for daily living? No 08/13/2024 Housing Stability Vital Sign Answer Fantasma e Recorded In the last 12 months, was t here a time when you were not able to pay the mortgage or rent on time? No 08/13/2024 In the past 12 months, how m any times have you moved where you were living? 0 08/13/2024 At any time in the past 12 m [facility], were you homeless or living in a [place] (including now)? No 08/13/2024 Education Answer Date Recorded What is the highest level of school you have completed or the highest degree you have received? Master's degree (e.g., MA, MS, Tash, MEd, HEATING AND COOLING SYSTEMS ENGINEER, NITHYA) 02/06/2022 Comments No Sex and Gender Information Value Date Recorded Sex Assigned at Not on file Legal Sex Female 9:22 PM CDT Gender Identity Not on file Sexual Orientation Not on file documented as of this encounter Plan of Treatment Upcoming Encounters Date Type Department Care Team (Late st Contact Info) Description 01/05/2025 3:30 PM CDT [facility] Neurology [facility] [address] [place] [address] Amor Tirado MD [address] [place] [address] 01/18/2025 9:00 AM CDT Appointment [facility] Ultrasound [address] [place] [address] Kathie Corey Maria Elena, PAC [address] [place] [address] Discharge Disposition: Discharged to home or Selfcare 02/15/2025 11:30 AM CD[facility] [address] [place] [phone] Discharge Disposition: Discharged to home or Selfcare 02/22/2025 10:40 AM CDT Office Visit [facility] Oncology Services [address] [place] [address] [facility] [address] [place] [address] Discharge Disposition: Discharged to home or Selfcare documented as of this encounter Visit Diagnoses Not on filedocumented in this encounter Additional Health Concerns Assessment Noted Time PHQ-9 Depression Total Score: 0 11/19/19 3:48 PM CDT documented as of this encounter Care Teams Motorized Squad Sergeant Relationship Specialty Start Date End Date Faisal Lopez MD #2 [facility] [address] [place] [address] PCP - General Family Medicine 07/29/15 Norma Benito APRN, TACTICAL DEBRIEFER [address] [place] [address] Nurse Practitioner Advanced Practice Nurse 10/15/23 Andres Almeida MD #2 [facility] [address] [place] [address] Consulting Physician General Surgery 11/21/23 Gm Galaviz MD #2 [facility] [address] [place] [address] Consulting Physician Gastroenterology 10/25/23 11/26/24 Amor Tirado MD [address] [place] [address] Consulting Physician Neurology 03/31/24 documented as of this encounter
--- OUTSIDE RECORDS SUMMARY | 2024-12-30 14:18 | XMS_ITS | Clinical Summary ---
Author Organization [facility] Address [address] [place] [address] Care Team Providers Care Clinical Data Specialist Name Role Phone Faisal Lopez MD Primary Care Provider [phone] Ilan Ortega MD Unavailable Allergies Active Allergy Reactions Criticality Noted Date [...] food for consumption 180 capsule 1 11/19/19 25 Active sucralfate (CARAFATE) 1 gram tablet Take 1 tablet (1 g total) by mouth 4 (four) times a day 120 tablet 11/19/19 25 Active Additional Information Patient not taking.Reported on [...] (three) times a day 90 tablet 07/06/20 025 Discontinued cyanocobalamin (Vitamin B-12) 500 mcg tablet Take 1 tablet (500 mcg total) by mouth daily 30 tablet 1 07/06/20 24 025 Discontinued thiamine (VITAMIN B1) 100 mg tablet Take 1 tablet (100 mg total) by mouth daily 30 tablet 1 07/06/20 025 Discontinued multivitamin with folic acid 400 mcg tablet Take 2 tablets by mouth daily 60 tablet 07/07/20 025 Discontinued zinc sulfate (ZINCATE) 50 mg zinc (220 mg) capsule Take 1 capsule (220 mg total) by mouth daily 30 capsule 07/07/20 025 Discontinued furosemide (LASIX) 80 mg tablet Take 1 tablet (80 mg total) by mouth daily 30 tablet 07/06/20 025 Discontinued spironolactone (ALDACTONE) 50 mg tablet [...] the Office today Follow up after Audiogram [facility] Ciprofloxacin 5 drops into the [...] (01/31/2022 2:54 PM CDT): Hearing test - [facility] Try to cancel out noise with loud [...] or concerns. Symptomatic cholelithiasis 12/03/2023 0 12/19/2023 Encounters Date Type Department Care Team Description 12/19/19 Orders Only [facility] Surgery [address] [place] [address] [address] [place] [address] Caitlyn Glasgow RMA Mass of soft tissue of face (Primary Dx) 12/17/19 Telephone [facility] Gastroenterology at [address] [place] [address] Brianna Feliciano 12/16/19 10:30 AM CDT Office Visit [facility] Surgery [address] [place] [address] [address] [place] [address] Marion Sung, MARITZA Mass of soft tissue of face (Primary Dx); Skin lesion 12/01/19 Telephone [facility] Gastroenterology at [address] [place] [address] Brianna Feliciano 11/28/19 Telephone [facility] Gastroenterology at [address] [place] [address] Hallie Conway LPN 11/28/19 Telephone [facility] Gastroenterology at [address] [place] [address] Hallie Conway LPN 11/27/19 Results Follow-Up [facility] Gastroenterology at [address] [place] [address] Ilan Ortega MD 11/19/19 11:00 AM CDT - 11/19/19 11:40 AM CDT Surgery [facility] [address] [place] [address] Ilan rOtega MD ESOPHAGOGASTRODUODENOSCOPY BIOPSY 11/19/19 10:40 AM CDT Anesthesia Event [facility] [place] 1 [place] [address] Guero Ureña MD Kory, Christopher James, MD 11/19/19 9:56 AM CDT - 11/19/19 12:01 PM CDT Hospital Encounter [facility] 1 [place] [address] Ilan Ortega MD Acute gastric ulcer without hemorrhage or perforation Discharge Disposition: Discharge to home or self care 11/19/19 Orders Only [facility] Gastroenterology at [place] [address] [facility] [address] [place] [address] Ilan Ortega MD from Last 3 Months Surgical History Surgery Date Site/Laterality Comments GASTRIC BYPASS 09/09/1996 - 09/08/1997 gastric bypass OTHER SURGICAL HISTORY 09/09/2001 - 09/08/2002 L lumpectomy EPIDURAL INJECTION RIGHT CERVICAL THORACIC 1 LEVEL 04/10/2019 Right HYSTERECTOMY CHOLECYSTECTOMY 12/12/2023 Medical History Medical History Date Comments Asthma Neck pain Staph infection Hypertension Chronic pain disorder Symptomatic cholelithiasis 12/03/2023 Gallstones 12/06/2023 EYAD (obstructive sleep apnea) 10/29/2023 Family History * Patient is adopted Medical History Relation Name Comments Stroke Mother Relation Name Status Comments Father Alive Mother Social History Tobacco Use Types Packs/Day Years Used Date Smoking Tobacco: Every Day Cigarettes 0.5 30 Smokeless Tobacco: Never Tobacco Cessation:Ready to Q uit: Not Asked; Counseling Given: Not Answered Alcohol Use Standard Drinks/Week Comments Yes 0 (1 standard drink = 0.6 oz pur e alcohol) socially only [employer] Utilities Answer Date Recorded In the past 12 months has [employer], [employer], oil, or water [employer] threatened to shut off services in your [...] week 07/07/2024 How often do you attend [facility] or episcopal services? Never 07/07/2024 Do you belong to any clubs o r organizations such as taoist groups, unions, fraternal or athletic groups, or [...] any time in the past 12 m [facility], were you homeless or living in a snf (including now)? No 07/07/2024 Personal Safety Answer Date Recorded Have you ever been in or are you currently in a harmful physical or emotional relationship or is someone making you feel afraid or unsafe? 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 Gender Identity Not on file Sexual Orientation Not on file Obstetrics History Last Filed Vital Signs Vital Sign Reading [...] Description 05/26/2025 11:30 AM CDT Hospital Encounter [address] [address] Ilan Ortega MD [address] [place] [address] 05/26/2025 11:30 AM CDT - 05/26/2025 12:05 PM CDT Surgery [address] [address] Ilan Ortega MD [address] [place] [address] ESOPHAGOGASTRODUODENOSCOPY Scheduled Procedures Name Priority Associated Diagnoses Date/Ti me ESOPHAGOGASTRODUODENOSCOPY Gastric ulcer, unspecified chronicity, unspecified whether gastric ulcer hemorrhage or perforation present 05/26/2025 11:30 AM CDT Health Maintenance Due Date Last Done Comments Depression Screening 1970 Regular Well Visit/Exam 18-64 01/01/1986 Pneumococcal vaccine <65 (1 of 2 - PCV) 01/01/1987 Zoster Vaccine (1 of 2) 01/01/2018 Covid-19 Vaccine (3 - 2023-2 5 season) 2024 01/04/2021, 12/06/2020 DTaP/Tdap/Td Vaccine (2 - Td or Tdap) 11/07/2024 11/07/2014 Breast Cancer Screening-Mammogram 11/02/2025 11/02/2024, 11/02/2024, 06/25/2023, Additional history exists Colon Cancer Screening-Colonoscopy 04/30/2034 04/30/2024 Colon Cancer Screening-CT Colonography Discontinued 04/30/2024 Colon Cancer Screening-DNA Stool Discontinued 04/30/20 Colon Cancer Screening-FIT Discontinued 04/30/2024 Colon Cancer Screening-Sigmoidoscopy Discontinued 04/30/2024 Influenza Vaccine Completed 06/08/2024, , 07/11/2022, Additional history exists Hepatitis B Screening Completed 06/26/2024 Hepatitis C Screening Completed 06/26/2024 Goals Goal Patient Goal Type Associated Problems Recent Progress Patient-Stated? 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 Final Report Patient Name: CHICA WILIKNS Address: [address] [place] [address] Gender: F : 1970 (Age: 54) Service: Gastro Location: [facility] Hospital #: [id number] Patient Type: [facility] Taken: 11/18/2024 Received: 11/18/2024 Accessioned: 11/18/2024 Reported: [...] is submitted in two formalin containers labeled HCICA Robin. The first container is labeled anastomosis biopsies . It is 5 fragments of solomon tissue between <1 and 1 mm. All in A. B. The second container is labeled gastric biopsies . It is 3 fragments of solomon tissue between <1 and 1 mm. All in B. T.A. Conor Hubbard P.A./Forrest Cochran M.D. REPORT IMAGES AND SCANNED DOCUMENTS, IF INCLUDED, ONLY VIEWABLE IN PDF VERSION OF REPORT The performance characteristics of some immunohistochemical stains, fluorescence in-situ hybridization tests and immunophenotyping by flow cytometry cited in this report (if any) were determined by the Surgical Pathology Department at [facility] as part of an ongoing fuel quality tech program and in compliance with federally mandated [...] characteristics determined by the Surgical Pathology Department [facility]. It has not been cleared or approved by the U. S. Food and Drug Administration. Note for decalcified specimens: This assay has not been validated on decalcified tissues. Results should be interpreted with caution given the possibility of false negativity on decalcified specimens Ilan Ortega MD LAB PATHOLOGY ORDERABLES Final R esult PATHOLOGY [facility] 1 [place] [address] * EGD (11/18/2024 10:12 AM CDT) Anatomical Region Laterality Modality Other Narrative Procedure Note Ilan Ortega MD - 11/18/2024 10:12 AM CDT [facility] Patient Name: Chica Wilkins Procedure Date: 11/18/2024 10:12 AM Date of : 1970 Admit Type: Outpatient Age: 54 Gender: Female Attending MD: Ilan Ortega M.D. Room: [facility] ENDOSCOPY ROOM 2 Note Status: Finalized [...] procedure were verified by the physician, the last dipper and the pilot plant technician in the endoscopy suite. Mental Status [...] passed under direct vision. The Endoscope [id number] was introduced through the mouth, and advanced [...] 10:12 AM Procedure Code(s): --- Professional --- 88522, Esophagogastroduodenoscopy, flexible, transoral; with biopsy, single or multiple --- Technical --- 74116, Esophagogastroduodenoscopy, flexible, transoral; with biopsy, single or [...] without hemorrhage or perforation CPT copyright 2020 [employer]. All rights reserved. The codes documented in this report are preliminary and upon hydraulic specialist reviewmay be revised to meet current compliance requirements. Recognized by the [place] [employer] for promoting quality in endoscopy us Ilan Ortega MD ENDOSCOPY PROCEDURES Final Resul t * Hepatitis panel, acute Blood (06/26/2024 10:30 PM CDT) Hep A IgM Nonreactive Nonreactive Hep B core IgM Nonreactive Nonreactive [facility] Hep C Ab Nonreactive Nonreactive ZENAIDA MONTERO Comment:Antibodies to HCV no t detected. Does NOT exclude the possibility of recent exposure to HCV. Current interpretive data was last revised on 22 HepBsAg Nonreactive Nonreactive [facility] Blood 06/26/2024 10:3 0 PM CDT 06/26/2024 10:56 PM CDT Agus Dozier MD LAB MICROBIOLOGY - NERAL ORDERABLES Final Result [facility] Department [place] [address] * Colonoscopy (04/30/2024 3:02 PM CDT) Anatomical Region Laterality Modality Other Narrative Procedure Note Ilan Ortega MD - 04/30/2024 3:02 PM CDT [facility] Patient Name: Chica Wilkins Procedure Date: 04/30/2024 3:02 PM Date of : 1970 Admit Type: Inpatient Age: 54 Gender: Female Attending MD: Ilan Ortega M.D. Room: [facility] ENDOSCOPY ROOM 2 Note Status: Finalized Patient Profile: This is a 54 year old female H significant for gastric bypass complicated by anastomotic [...] procedure were verified by the physician, the last dipper and the pilot plant technician in the endoscopy suite. Mental Status [...] scope was passed under direct vision.The Colonoscope [id number] was introducedthrough the anus and advanced to [...] during retroflexion. Small amounts of hematin (altered blood/ftytkt-ycvymj-wwqp material)was found scattered in the entire colon most prominent in cecum, sigmoidand rectum. No signs of active bleeding in the entire examined colon. The terminal ileum examined up to 10 cm appeared normal. Ilan rOtega M.D. 04/30/2024 4:25:46 PM Number of Addenda: 0 Note Initiated On: 04/30/2024 3:02 PM Procedure Code(s): --- Professional --- 83694, Colonoscopy, flexible; with removal of tumor(s), polyp(s), or other lesion(s) by snare technique 28115, 59, Colonoscopy, flexible; with biopsy, single or multiple --- Technical --- 34650, Colonoscopy, flexible; with removal of tumor(s), polyp(s), or other lesion(s) by snare technique 61099, 59, Colonoscopy, flexible; with biopsy, single or [...] Iron deficiency anemia, unspecified CPT copyright 2020 [employer]. All rights reserved. The codes documented in this report are preliminary and upon hydraulic specialist reviewmay be revised to meet current compliance requirements. Recognized by the [place] [employer] G[employer] for promoting quality in endoscopy Ilan Ortega MD ENDOSCOPY PROCEDURES Final Resul t from Last 3 Months or Most Recently Relevant to Health Maintenance Insurance ANTHEM ACCESS CHOICE ANTHEM ACCESS CHOICE ANTHEM ACCESS CHOICE Advance Directives For more information, please contact: [phone] * Full Code (Latest Code Status on [...] Wilkins Spouse Health Care Agent Care Teams Clinical Data Specialist Relationship Specialty Start Date End Date Faisal Lopez MD [address] [address] PCP - General 10/13/18 Ilan Ortega MD [address] [address] Consulting Physician Gastroenterology 04/30/24
--- OUTSIDE RECORDS SUMMARY | 2024-12-30 14:18 | XMS_ITS | Encounter Summary ---
Author Organization [facility] Address [address] [place] [address] Phone Care Team Providers Care Plaster Mixer Name Role Phone Faisal Lopez MD Primary Care Provider [phone] Norma Benito APRN, CNP Unavailable Andres Almeida MD Unavailable [phone] Gm Galaviz MD Unavailable Amor Tirado MD Unavailable Reason for Referral * Radiology Services (Routine) - Closed Specialty Diagnoses / Procedures Referred By Vu gilbert Referred To Contact Radiology Diagnoses Visit for screening mammogram Procedures WINSTON SCREENING BILATERAL DIGITAL W CAD W Faisal Lala MD #[address] [address] Phone: tel: fax: Referral ID Status Reason Start Date Expiration Date Visits Re quested Visits Authorized [id number] Closed 10/14/2024 1 1 EY MAINTAINER Encounter Details Date Type Department Care Team (Late st Contact Info) Description 10/14/2024 Transcribe Orders [facility] [address] [place], [place] [address] Faisal Lopez MD [address]2 [facility] [address] [place] [address] Visit for screening mammogram (Primary Dx) Social History Tobacco Use Types Packs/Day Years Used Date Smoking Tobacco: Every Day Cigarettes 0.3 20 Smokeless Tobacco: Never Comments:3 packs a week Alcohol Use Standard Drinks/Week Comments Not Currently 12 (1 standard drink = 0.6 oz pu re alcohol) [facility] Utilities Answer Date Recorded In the past 12 months has e [employer], [employer], oil, or water [employer] threatened to shut off services in your [...] often do you attend chur ch or christian services? Never 08/13/2024 Do you belong to any clubs o r organizations such as denominational groups, unions, fraternal or athletic groups, or [...] Total Score - Questions 1-9 0 11/07 [facility] [place] of Occupat ional Health - Occupational Stress [...] any time in the past 12 m [facility], were you homeless or living in a retirement (including now)? No 08/13/2024 Education Answer Date Recorded What is the highest level of school you have completed or the highest degree you have received? Master's degree (e.g., MA, MS, Tash, MEd, CHILD DAY CARE TEACHER, NITHYA) 02/06/2022 Comments No Sex and Gender Information Value Date Recorded Sex Assigned at Not on file Legal Sex Female 9:22 PM CDT Gender Identity Not on file Sexual Orientation Not on file documented as of this encounter Plan of Treatment Upcoming Encounters Date Type Department Care Team (Late st Contact Info) Description 01/05/2025 3:30 PM CDT Office Visit [facility] - Neurology [facility] [address] [place] [address] Amor Tirado MD [address] [place] [address] 01/18/2025 9:00 AM CDT Appointment [facility] Ultrasound 1 [place] [address] Kathie Corey Maria Elena, PAC [address] [place] [address] Discharge Disposition: Discharged to home or Selfcare 02/15/2025 11:30 AM CDT Lab [facility] [address] [place] [address] Discharge Disposition: Discharged to home or Selfcare 02/22/2025 10:40 AM CDT Office Visit [facility] [address] [place] [address] CoreyKathie aviles Maria Elena, PAC [address] [place] [address] Discharge Disposition: Discharged to home or Selfcare documented as of this encounter Results * WINSTON SCREENING BILATERAL DIGITAL W CAD W ISABELLA (11/02/2024 4:30 PM PULLEY MAINTAINER) Anatomical Region Laterality Modality breast Bilateral Mammography 11/02/2024 4:26 PM PULLEY MAINTAINER Narrative 11/04/2024 9:44 AM PULLEY MAINTAINER - WINSTON SCREENING BILATERAL DIGITAL W CAD [...] to exams dated: 06/25/2023, 12/17/2020, and 10/04/2018 [facility]. BREAST TISSUE:There are scattered areas of [...] next screening exam. Electronically signed by: Austin [email or web address]/mj:11/03/2024 16:43:10 Manager Of Regulatory Affairs(s): RT Ayden(R)(M), [facility] letter sent: Normal Exam Reading location: [...] to exams dated: 06/25/2023, 12/17/2020, and 10/04/2018 [facility]. BREAST TISSUE:There are scattered areas of [...] next screening exam. Electronically signed by: Austin sotelo/mj:11/03/2024 16:43:10 Manager Of Regulatory Affairs(s): RT Ayden(R)(M), [facility] letter sent: Normal Exam Reading location: [facility] Mammogram BI-RADS: Category 2: Benign Faisal Lopez MD IMG MAMMO ORDERABLES Final Re sult documented in this encounter Visit Diagnoses Diagnosis Visit for screening mammogram- Primary Other screening mammogram Visit for screening mammogram Other screening mammogram documented in this encounter Additional Health Concerns Assessment Noted Time PHQ-9 Depression Total Score: 0 11/19/19 3:48 PM CDT documented as of this encounter Care Teams Plaster Mixer Relationship Specialty Start Date End Date Faisal Lopez MD [address]2 [facility] [address] [place] [address] PCP - General Family Medicine 07/29/15 Norma Benito APRN, MANNEQUIN COLORING ARTIST [address] [place] [address] Nurse Practitioner Advanced Practice Nurse 10/15/23 Andres Almeida MD [address]2 [facility] [address] [place] [address] Consulting Physician General Surgery 11/21/23 Gm Galaviz MD #2 [facility] [address] [place] [address] Consulting Physician Gastroenterology 10/25/23 11/26/24 Amor Tirado MD [address] [place] [address] Consulting Physician Neurology 03/31/24 documented as of this encounter
[2025-01-03 11:29] LABS: Vitamin B1 7 nmol/L (8-30)
== END 2024-12-30 12:46 | disposition home or self-care (01) ==
LOC: ANHSURGERY 12:55 → ANHCARD 12:57 → ANHLAB 12:58
PROVIDERS: Visit Provider Surgery Plastic and Reconstructive Surgery
DX: Z01.818 Encounter for other preprocedural examination (principal); Z41.1 Encounter for cosmetic surgery; R63.4 Abnormal weight loss; R94.31 Abnormal electrocardiogram [ECG] [EKG]
CPT/HCPCS: 36415; 80048; 82040; 83540; 84134; 84425; 85027; 93005